=== PATIENT | female | born 1950 | race Caucasian/White ===

== ENCOUNTER 2021-07-30 14:28 | Outpatient (CLI) | payer BC, MEDICARE | END 2021-07-30 14:29 | disposition home or self-care (01) | LOC: BICRAD 14:28 | PROVIDERS: ATTEND Internal Medicine Nephrology | DX: N18.5 Chronic kidney disease, stage 5 (principal) | CPT/HCPCS: 36415; 71046; 80053; 85025; 86704; 86706; 86803; 87340 ==

== ENCOUNTER 2021-08-17 08:19 | Day surgery (SDC) | payer MEDICARE ==
[2021-08-14 11:10] VITALS: BMI 28.5
[2021-08-17] MEDS ORDERED: Heparin 10,000 UNITS/ 10 ML VIAL ONE (10:10)
[2021-08-17] MEDS ORDERED: Heparin 5,000 UNITS/ML VIAL ONE (10:10)
[2021-08-17] MEDS ORDERED: Sodium Chloride 0.9% 0 ML ONE (10:10)
[2021-08-17] MEDS ORDERED: Ketamine 50 MG/ML (10ML VIAL) ONE (10:14)
[2021-08-17] MEDS ORDERED: Fentanyl 100 MCG/2 ML VIAL ONE (10:14)
[2021-08-17] MEDS ORDERED: Midazolam HCl 2 mg/2 ml Vial ONE (10:14)
[2021-08-17] MEDS ORDERED: Lidocaine 1% w/Epinephrine 1:100K 20 ML VIAL ONE (10:50)
[2021-08-17] MEDS ORDERED: Bupivacaine PF 0.5% 30 ML VIAL ONE (10:50)
[2021-08-17] MEDS ORDERED: ceFAZolin 2 GM/DEX 5% 100 ML BAG ONE (11:12)
[2021-08-17] MEDS ORDERED: Lidocaine 1% PF 5 ML VIAL ONE (11:35)
[2021-08-17] MEDS ORDERED: Rocuronium Bromide 10 MG/ML (10ML VIAL) ONE (11:35)
[2021-08-17] MEDS ORDERED: Dexamethasone 20 MG/5 ML VIAL ONE (11:35)
[2021-08-17] MEDS ORDERED: PROPOFOL 200 MG/20 ML VIAL ONE (11:35)
[2021-08-17] MEDS ORDERED: Ondansetron PF 4 MG/2 ML Vial ONE ×2 (11:35→13:43)
[2021-08-17] MEDS ORDERED: Protamine Sulfate 50 MG/5 ML VIAL ONE (12:55)
[2021-08-17] MEDS ORDERED: SUGAMMADEX SODIUM 200 MG/2 ML VIAL ONE (13:02)
[2021-08-17] MEDS ORDERED: Promethazine HCl 25 MG/ML VIAL ONE (14:34)
[2021-08-17] MEDS ORDERED: Sodium Chloride 0.9% 10 ML ONE (14:37)
== END 2021-08-17 16:00 | disposition home or self-care (01) ==
LOC: SDC 08:19
PROVIDERS: ATTEND Specialist
PROC: 0WHG43Z Insertion of Infusion Device into Peritoneal Cavity, Percutaneous Endoscopic Approach (ICD-10-PCS; principal; 2021-08-17)
PROC: 031C0ZF Bypass Left Radial Artery to Lower Arm Vein, Open Approach (ICD-10-PCS; 2021-08-17)
DX: I12.0 Hypertensive chronic kidney disease with stage 5 chronic kidney disease or end stage renal disease (principal); E11.22 Type 2 diabetes mellitus with diabetic chronic kidney disease; N18.6 End stage renal disease; E78.5 Hyperlipidemia, unspecified; E11.51 Type 2 diabetes mellitus with diabetic peripheral angiopathy without gangrene; E11.40 Type 2 diabetes mellitus with diabetic neuropathy, unspecified; Z87.891 Personal history of nicotine dependence; Z79.4 Long term (current) use of insulin; Z79.899 Other long term (current) drug therapy; Z88.5 Allergy status to narcotic agent; Z88.8 Allergy status to other drugs, medicaments and biological substances
CPT/HCPCS: 36416; 93005; 93010; J1100; J1642; J1644; J2250; J2405; J2550; J2704; J2720; J3010; S0020

== ENCOUNTER 2021-09-09 10:11 | Inpatient (IN) | payer MEDICARE ==
[2021-09-09 11:09] LABS: #Basophils 0.1 thou/uL (0.0-0.2); #Eosinphils 0.3 thou/uL (0.0-0.7); #Lymphocytes 0.8 thou/uL (1.20-3.40); #Monocytes 0.6 thou/uL (0.11-0.59); #Neutrophils 11.7 thou/uL (1.40-6.50); %Basophils 0.6 % (0.0-1.0); %Eosinophils 2.6 % (0.0-10.0); %Lymphocytes 5.7 % (21.0-51.0); %Monocytes 4.4 % (0.0-10.0); %Neutrophils 86.8 % (42.0-75.0); Hemoglobin 10.1 g/dL (12.0-16.0); Mean Corpuscular HGB CONC 32.9 g/dL (32.0-36.0); Mean Corpuscular Hemoglobin 29.2 pg (27.0-31.0); Mean Corpuscular Volume 88.7 fL (78.0-98.0); Mean Platelet Volume 6.3 fL (7.4-10.4); Platelet Count 249 thou/uL (130-400); RBC Distribution Width 16.7 % (11.5-14.5); Red Blood Cell (RBC) Count 3.48 mill/uL (4.20-5.40); White Blood Cell (WBC) Count 13.5 thou/uL (4.8-10.8)
[2021-09-09] MEDS ORDERED: Heparin 10,000 UNITS/ 10 ML VIAL ONE (11:41)
[2021-09-09 11:52] LABS: CKMB 4.6 ng/mL (0-6.6)
[2021-09-09 11:53] LABS: ALT (SGPT) 8 U/L (8-55); AST (SGOT) 10 U/L (5-34); Alkaline Phosphatase 84 U/L (40-110); Anion Gap 17 mmol/L (10-20); BUN (Urea Nitrogen) 64 mg/dL (9.8-20.1); Bilirubin, Total 0.6 mg/dL (0.2-1.2); Calc. Creatinine Clearance 0 mL/min (70-130); Calcium 8.6 mg/dL (7.8-10.44); Carbon Dioxide 13 mmol/L (23-31); Chloride 113 mmol/L (98-107); Glucose 222 mg/dL (80-115); Potassium 4.6 mmol/L (3.5-5.1); Sodium 138 mmol/L (136-145)
[2021-09-09] MEDS ORDERED: Lorazepam 2 MG/ML VIAL ONE (13:28)
[2021-09-09 14:34] LABS: HBSAg Index 0.26 S/CO (0-0.99); Hep B Surf Ag Non-Reactive S/CO (NonReactive)
[2021-09-09 16:15] LABS: Troponin I 1.397 ng/mL (< 0.028)
[2021-09-09] MEDS ORDERED: HYDROcodone/Acetaminophen 5/325 mg Tablet PO PRN (16:23)
[2021-09-09] MEDS ORDERED: Dextrose 50% Abboject 50 ML SYRINGE SLOW IVP PRN (16:23)
[2021-09-09] MEDS ORDERED: Dextrose 5% in Water 1,000 ML IV PRN (16:23)
[2021-09-09] MEDS ORDERED: hydrALAZINE 20 MG/ML VIAL SLOW IVP PRN (16:23)
[2021-09-09 19:40] LABS: Troponin I 1.536 ng/mL (< 0.028)
[2021-09-09] MEDS: Heparin 5,000 UNITS/ML VIAL SC SCH (20:39)
[2021-09-09] MEDS: EPOETIN ALFA-EPBX (ESRD) 4,000 UNIT/ML VIAL SC SCH (20:40)
[2021-09-10 00:30] LABS: Critical Call Chem Troponin I RESULT DECREASING; Troponin I 0.764 ng/mL (< 0.028)
[2021-09-10 03:48] LABS: #Eosinphils 0.4 thou/uL (0.0-0.7); #Lymphocytes 1.1 thou/uL (1.20-3.40); #Monocytes 0.7 thou/uL (0.11-0.59); #Neutrophils 6.4 thou/uL (1.40-6.50); %Basophils 0.5 % (0.0-1.0); %Eosinophils 4.4 % (0.0-10.0); %Lymphocytes 12.9 % (21.0-51.0); %Monocytes 7.6 % (0.0-10.0); %Neutrophils 74.6 % (42.0-75.0); Hemoglobin 8.1 g/dL (12.0-16.0); Mean Corpuscular HGB CONC 32.8 g/dL (32.0-36.0); Mean Corpuscular Hemoglobin 28.8 pg (27.0-31.0); Mean Corpuscular Volume 87.9 fL (78.0-98.0); Mean Platelet Volume 6.5 fL (7.4-10.4); Platelet Count 165 thou/uL (130-400); RBC Distribution Width 16.2 % (11.5-14.5); White Blood Cell (WBC) Count 8.6 thou/uL (4.8-10.8)
[2021-09-10 04:07] LABS: Anion Gap 12 mmol/L (10-20); BUN (Urea Nitrogen) 40 mg/dL (9.8-20.1); Calc. Creatinine Clearance 24 mL/min (70-130); Calcium 7.9 mg/dL (7.8-10.44); Carbon Dioxide 19 mmol/L (23-31); Chloride 109 mmol/L (98-107); Glucose 159 mg/dL (80-115); Potassium 3.6 mmol/L (3.5-5.1); Sodium 136 mmol/L (136-145)
[2021-09-10] MEDS: Ferrous Sulfate 325 MG TAB PO SCH ×2 (10:33→16:32)
[2021-09-10] MEDS: Heparin 5,000 UNITS/ML VIAL SC SCH ×2 (10:34→20:55)
[2021-09-10] MEDS: Famotidine 20 MG TAB PO SCH (10:34)
[2021-09-10] MEDS ORDERED: traMADol HCl 50 MG TAB PO PRN (14:59)
[2021-09-10] MEDS: HumaLOG 300 UNITS/3 ML VIAL SC PRN (16:32)
[2021-09-10] MEDS: hydrOXYzine 25 MG TAB PO SCH (20:55)
[2021-09-10 21:11] LABS: SARS-CoV-2 PCR by NAA Not Detected (NotDetected)
[2021-09-11 04:16] LABS: #Basophils 0.1 thou/uL (0.0-0.2); #Eosinphils 0.4 thou/uL (0.0-0.7); #Lymphocytes 0.9 thou/uL (1.20-3.40); #Monocytes 0.8 thou/uL (0.11-0.59); #Neutrophils 6.3 thou/uL (1.40-6.50); %Basophils 0.6 % (0.0-1.0); %Eosinophils 4.8 % (0.0-10.0); %Lymphocytes 10.8 % (21.0-51.0); %Monocytes 8.9 % (0.0-10.0); %Neutrophils 74.9 % (42.0-75.0); Mean Corpuscular HGB CONC 32.9 g/dL (32.0-36.0); Mean Corpuscular Hemoglobin 29.2 pg (27.0-31.0); Mean Corpuscular Volume 88.7 fL (78.0-98.0); Mean Platelet Volume 6.6 fL (7.4-10.4); Platelet Count 176 thou/uL (130-400); RBC Distribution Width 16.2 % (11.5-14.5); Red Blood Cell (RBC) Count 3.07 mill/uL (4.20-5.40); White Blood Cell (WBC) Count 8.4 thou/uL (4.8-10.8)
[2021-09-11 04:39] LABS: Anion Gap 12 mmol/L (10-20); BUN (Urea Nitrogen) 48 mg/dL (9.8-20.1); Calc. Creatinine Clearance 22 mL/min (70-130); Calcium 7.9 mg/dL (7.8-10.44); Carbon Dioxide 19 mmol/L (23-31); Chloride 108 mmol/L (98-107); Glucose 197 mg/dL (80-115); Phosphorus 3.6 mg/dL (2.3-4.7); Potassium 3.8 mmol/L (3.5-5.1); Sodium 135 mmol/L (136-145)
[2021-09-11] MEDS: Calcitriol 0.25 MCG CAP PO SCH (09:29)
[2021-09-11] MEDS: Aspirin 81 mg Enteric Coated Tablet PO SCH (09:29)
[2021-09-11] MEDS: Ferrous Sulfate 325 MG TAB PO SCH ×2 (09:29→17:44)
[2021-09-11] MEDS: Famotidine 20 MG TAB PO SCH (09:29)
[2021-09-11] MEDS: hydrOXYzine 25 MG TAB PO SCH ×2 (09:29→20:37)
[2021-09-11] MEDS: Heparin 5,000 UNITS/ML VIAL SC SCH ×2 (09:30→20:36)
[2021-09-11] MEDS ORDERED: Losartan 25 MG TAB PO SCH (09:45)
[2021-09-11] MEDS ORDERED: Heparin 10,000 UNITS/ 10 ML VIAL ONE (11:39)
[2021-09-11] MEDS: Acetaminophen 325 MG TAB PO PRN (12:51)
[2021-09-11] MEDS: HumaLOG 300 UNITS/3 ML VIAL SC PRN (17:44)
[2021-09-12 05:39] LABS: Cardiac Risk 4.3 (Less than 4.5)
[2021-09-12] MEDS: HumaLOG 300 UNITS/3 ML VIAL SC PRN ×3 (06:08→21:16)
[2021-09-12] MEDS ORDERED: Heparin 10,000 UNITS/ 10 ML VIAL ONE (11:44)
[2021-09-12] MEDS: Heparin 5,000 UNITS/ML VIAL SC SCH ×2 (13:12→20:17)
[2021-09-12] MEDS: Ferrous Sulfate 325 MG TAB PO SCH ×2 (13:12→17:19)
[2021-09-12] MEDS: Gabapentin 300 MG CAP PO SCH ×3 (13:12→20:17)
[2021-09-12] MEDS: Famotidine 20 MG TAB PO SCH (13:56)
[2021-09-12] MEDS: Calcitriol 0.25 MCG CAP PO SCH (13:56)
[2021-09-12] MEDS: Aspirin 81 mg Enteric Coated Tablet PO SCH (13:57)
[2021-09-12] MEDS: hydrOXYzine 25 MG TAB PO SCH ×2 (13:57→20:17)
[2021-09-12] MEDS: Losartan 25 MG TAB PO SCH (13:57)
[2021-09-13 06:04] LABS: #Basophils 0.1 thou/uL (0.0-0.2); #Eosinphils 0.5 thou/uL (0.0-0.7); #Lymphocytes 1.1 thou/uL (1.20-3.40); #Monocytes 0.9 thou/uL (0.11-0.59); #Neutrophils 9.1 thou/uL (1.40-6.50); %Basophils 0.8 % (0.0-1.0); %Eosinophils 4.4 % (0.0-10.0); %Lymphocytes 9.4 % (21.0-51.0); %Monocytes 7.4 % (0.0-10.0); %Neutrophils 78.1 % (42.0-75.0); Hemoglobin 8.6 g/dL (12.0-16.0); Mean Corpuscular HGB CONC 32.4 g/dL (32.0-36.0); Mean Corpuscular Volume 89.5 fL (78.0-98.0); Mean Platelet Volume 6.2 fL (7.4-10.4); Platelet Count 214 thou/uL (130-400); RBC Distribution Width 15.3 % (11.5-14.5); Red Blood Cell (RBC) Count 2.98 mill/uL (4.20-5.40); White Blood Cell (WBC) Count 11.6 thou/uL (4.8-10.8)
[2021-09-13] MEDS: HumaLOG 300 UNITS/3 ML VIAL SC PRN ×4 (06:05→20:45)
[2021-09-13 06:28] LABS: Anion Gap 12 mmol/L (10-20); BUN (Urea Nitrogen) 24 mg/dL (9.8-20.1); Calc. Creatinine Clearance 27 mL/min (70-130); Calcium 8.1 mg/dL (7.8-10.44); Carbon Dioxide 27 mmol/L (23-31); Chloride 99 mmol/L (98-107); Glucose 224 mg/dL (80-115); Potassium 3.6 mmol/L (3.5-5.1); Sodium 134 mmol/L (136-145)
[2021-09-13] MEDS: Famotidine 20 MG TAB PO SCH (08:49)
[2021-09-13] MEDS: Aspirin 81 mg Enteric Coated Tablet PO SCH (08:49)
[2021-09-13] MEDS: Calcitriol 0.25 MCG CAP PO SCH (08:49)
[2021-09-13] MEDS: Ferrous Sulfate 325 MG TAB PO SCH ×2 (08:49→16:08)
[2021-09-13] MEDS: hydrOXYzine 25 MG TAB PO SCH ×2 (08:50→22:14)
[2021-09-13] MEDS: Gabapentin 300 MG CAP PO SCH ×3 (08:50→22:14)
[2021-09-13] MEDS: Losartan 25 MG TAB PO SCH (08:50)
[2021-09-13] MEDS: Heparin 5,000 UNITS/ML VIAL SC SCH ×2 (08:51→20:45)
[2021-09-13] MEDS ORDERED: Communication Order-Pharmacy FS SCH (09:00)
[2021-09-14 05:18] LABS: #Basophils 0.1 thou/uL (0.0-0.2); #Eosinphils 0.6 thou/uL (0.0-0.7); #Lymphocytes 1.3 thou/uL (1.20-3.40); #Monocytes 0.7 thou/uL (0.11-0.59); #Neutrophils 7.5 thou/uL (1.40-6.50); %Basophils 0.6 % (0.0-1.0); %Eosinophils 5.7 % (0.0-10.0); %Lymphocytes 13.1 % (21.0-51.0); %Monocytes 6.5 % (0.0-10.0); %Neutrophils 74.1 % (42.0-75.0); Hemoglobin 8.8 g/dL (12.0-16.0); Mean Corpuscular HGB CONC 32.1 g/dL (32.0-36.0); Mean Corpuscular Volume 90.4 fL (78.0-98.0); Mean Platelet Volume 6.5 fL (7.4-10.4); Platelet Count 230 thou/uL (130-400); RBC Distribution Width 15.3 % (11.5-14.5); Red Blood Cell (RBC) Count 3.03 mill/uL (4.20-5.40); White Blood Cell (WBC) Count 10.1 thou/uL (4.8-10.8)
[2021-09-14 05:41] LABS: Anion Gap 12 mmol/L (10-20); BUN (Urea Nitrogen) 39 mg/dL (9.8-20.1); Calc. Creatinine Clearance 18 mL/min (70-130); Calcium 8.3 mg/dL (7.8-10.44); Carbon Dioxide 27 mmol/L (23-31); Chloride 98 mmol/L (98-107); Glucose 240 mg/dL (80-115); Potassium 3.8 mmol/L (3.5-5.1); Sodium 133 mmol/L (136-145)
[2021-09-14] MEDS: Calcitriol 0.25 MCG CAP PO SCH (07:58)
[2021-09-14] MEDS: Aspirin 81 mg Enteric Coated Tablet PO SCH (07:58)
[2021-09-14] MEDS: Ferrous Sulfate 325 MG TAB PO SCH ×2 (07:58→16:22)
[2021-09-14] MEDS: Famotidine 20 MG TAB PO SCH (07:58)
[2021-09-14] MEDS: hydrOXYzine 25 MG TAB PO SCH ×2 (08:00→21:03)
[2021-09-14] MEDS: Losartan 25 MG TAB PO SCH (08:01)
[2021-09-14] MEDS ORDERED: Lidocaine 1% (PF) 30 ML VIAL ONE (08:07)
[2021-09-14] MEDS ORDERED: Nitroglycerin 100MG/250ML BOT 0 ML ONE ×2 (08:11→08:12)
[2021-09-14] MEDS ORDERED: Verapamil 5 MG/2 ML VIAL ONE (08:11)
[2021-09-14] MEDS ORDERED: Heparin 10,000 UNITS/ 10 ML VIAL ONE ×2 (08:11→09:46)
[2021-09-14] MEDS: Gabapentin 300 MG CAP PO SCH ×3 (08:19→21:02)
[2021-09-14] MEDS: Heparin 5,000 UNITS/ML VIAL SC SCH ×2 (08:20→21:03)
[2021-09-14] MEDS ORDERED: Midazolam HCl 2 mg/2 ml Vial ONE (08:56)
[2021-09-14] MEDS ORDERED: Fentanyl 100 MCG/2 ML VIAL ONE (08:57)
[2021-09-14] MEDS ORDERED: hydrALAZINE 20 MG/ML VIAL ONE (09:22)
[2021-09-14] MEDS ORDERED: Iopamidol 370 76% 50 ML VIAL FS ONE (09:23)
[2021-09-14] MEDS ORDERED: Iopamidol 370 76% 100 ML VIAL ONE (09:23)
[2021-09-14] MEDS ORDERED: Clopidogrel Bisulfate 300 MG TAB ONE (09:33)
[2021-09-14] MEDS ORDERED: Nitroglycerin 0.4 MG TAB (25 Tab Bottle) SL PRN (09:45)
[2021-09-14] MEDS ORDERED: Senokot S 8.6-50 MG TAB PO SCH (18:15)
[2021-09-14] MEDS: HumaLOG 300 UNITS/3 ML VIAL SC PRN (21:03)
[2021-09-15 04:59] LABS: #Eosinphils 0.5 thou/uL (0.0-0.7); #Lymphocytes 1.2 thou/uL (1.20-3.40); #Monocytes 0.8 thou/uL (0.11-0.59); #Neutrophils 7.3 thou/uL (1.40-6.50); %Basophils 0.5 % (0.0-1.0); %Eosinophils 4.9 % (0.0-10.0); %Lymphocytes 11.8 % (21.0-51.0); %Monocytes 7.8 % (0.0-10.0); Hemoglobin 8.9 g/dL (12.0-16.0); Mean Corpuscular HGB CONC 32.3 g/dL (32.0-36.0); Mean Corpuscular Hemoglobin 28.9 pg (27.0-31.0); Mean Corpuscular Volume 89.3 fL (78.0-98.0); Mean Platelet Volume 6.7 fL (7.4-10.4); Platelet Count 243 thou/uL (130-400); RBC Distribution Width 15.2 % (11.5-14.5); Red Blood Cell (RBC) Count 3.07 mill/uL (4.20-5.40); White Blood Cell (WBC) Count 9.8 thou/uL (4.8-10.8)
[2021-09-15 05:20] LABS: ALT (SGPT) 7 U/L (8-55); AST (SGOT) 11 U/L (5-34); Alkaline Phosphatase 68 U/L (40-110); Anion Gap 16 mmol/L (10-20); BUN (Urea Nitrogen) 45 mg/dL (9.8-20.1); Bilirubin, Total 0.5 mg/dL (0.2-1.2); Calc. Creatinine Clearance 15 mL/min (70-130); Calcium 8.1 mg/dL (7.8-10.44); Carbon Dioxide 22 mmol/L (23-31); Chloride 98 mmol/L (98-107); Globulin 3.7 g/dL (2.4-3.5); Glucose 217 mg/dL (80-115); Potassium 3.7 mmol/L (3.5-5.1); Protein, Total 6.7 g/dL (5.8-8.1); Sodium 132 mmol/L (136-145)
[2021-09-15] MEDS: HumaLOG 300 UNITS/3 ML VIAL SC PRN ×4 (06:22→21:37)
[2021-09-15] MEDS: Losartan 25 MG TAB PO SCH (10:11)
[2021-09-15] MEDS: Aspirin 81 mg Enteric Coated Tablet PO SCH (10:11)
[2021-09-15] MEDS: hydrOXYzine 25 MG TAB PO SCH ×2 (10:12→21:36)
[2021-09-15] MEDS: Senokot S 8.6-50 MG TAB PO SCH ×2 (10:14→21:37)
[2021-09-15] MEDS: Ferrous Sulfate 325 MG TAB PO SCH ×2 (10:14→17:12)
[2021-09-15] MEDS: Clopidogrel Bisulfate 75 MG TAB PO SCH (10:14)
[2021-09-15] MEDS ORDERED: Sterile Water 10 ML VIAL IVP SCH (10:15)
[2021-09-15] MEDS ORDERED: Activase 2 MG VIAL CATH SCH (10:15)
[2021-09-15] MEDS: Calcitriol 0.25 MCG CAP PO SCH (10:15)
[2021-09-15] MEDS: Gabapentin 300 MG CAP PO SCH ×3 (10:15→21:37)
[2021-09-15] MEDS: Heparin 5,000 UNITS/ML VIAL SC SCH ×2 (10:18→21:37)
[2021-09-15] MEDS: Famotidine 20 MG TAB PO SCH (12:12)
[2021-09-15] MEDS: Acetaminophen 325 MG TAB PO PRN (21:36)
[2021-09-16 04:36] LABS: #Basophils 0.1 thou/uL (0.0-0.2); #Eosinphils 0.5 thou/uL (0.0-0.7); #Monocytes 0.7 thou/uL (0.11-0.59); #Neutrophils 6.9 thou/uL (1.40-6.50); %Basophils 0.6 % (0.0-1.0); %Eosinophils 5.6 % (0.0-10.0); %Lymphocytes 10.6 % (21.0-51.0); %Monocytes 7.8 % (0.0-10.0); %Neutrophils 75.4 % (42.0-75.0); Hemoglobin 8.1 g/dL (12.0-16.0); Mean Corpuscular HGB CONC 31.5 g/dL (32.0-36.0); Mean Corpuscular Hemoglobin 28.2 pg (27.0-31.0); Mean Corpuscular Volume 89.5 fL (78.0-98.0); Mean Platelet Volume 6.3 fL (7.4-10.4); Platelet Count 279 thou/uL (130-400); RBC Distribution Width 15.2 % (11.5-14.5); Red Blood Cell (RBC) Count 2.87 mill/uL (4.20-5.40); White Blood Cell (WBC) Count 9.2 thou/uL (4.8-10.8)
[2021-09-16 04:54] LABS: Anion Gap 17 mmol/L (10-20); BUN (Urea Nitrogen) 51 mg/dL (9.8-20.1); Calc. Creatinine Clearance 14 mL/min (70-130); Carbon Dioxide 21 mmol/L (23-31); Chloride 96 mmol/L (98-107); Glucose 294 mg/dL (80-115); Potassium 3.6 mmol/L (3.5-5.1); Sodium 130 mmol/L (136-145)
[2021-09-16] MEDS: HumaLOG 300 UNITS/3 ML VIAL SC PRN ×2 (05:42→21:55)
[2021-09-16] MEDS: hydrOXYzine 25 MG TAB PO SCH ×2 (09:06→21:56)
[2021-09-16] MEDS: Losartan 25 MG TAB PO SCH (09:06)
[2021-09-16] MEDS: Clopidogrel Bisulfate 75 MG TAB PO SCH (09:06)
[2021-09-16] MEDS: Gabapentin 300 MG CAP PO SCH ×3 (09:06→21:55)
[2021-09-16] MEDS: Senokot S 8.6-50 MG TAB PO SCH ×2 (09:07→21:56)
[2021-09-16] MEDS: Aspirin 81 mg Enteric Coated Tablet PO SCH (09:09)
[2021-09-16] MEDS: Ferrous Sulfate 325 MG TAB PO SCH ×2 (09:09→16:01)
[2021-09-16] MEDS: Calcitriol 0.25 MCG CAP PO SCH (09:09)
[2021-09-16 14:36] LABS: Hemoglobin 8.8 g/dL (12.0-16.0)
[2021-09-16] MEDS: EPOETIN ALFA-EPBX (ESRD) 4,000 UNIT/ML VIAL SC SCH (21:58)
[2021-09-17 04:45] LABS: #Eosinphils 0.6 thou/uL (0.0-0.7); #Lymphocytes 1.1 thou/uL (1.20-3.40); #Monocytes 0.7 thou/uL (0.11-0.59); #Neutrophils 7.5 thou/uL (1.40-6.50); %Basophils 0.5 % (0.0-1.0); %Eosinophils 5.7 % (0.0-10.0); %Lymphocytes 11.1 % (21.0-51.0); %Monocytes 6.6 % (0.0-10.0); %Neutrophils 76.1 % (42.0-75.0); Mean Corpuscular HGB CONC 32.7 g/dL (32.0-36.0); Mean Corpuscular Hemoglobin 28.8 pg (27.0-31.0); Mean Corpuscular Volume 87.9 fL (78.0-98.0); Mean Platelet Volume 6.4 fL (7.4-10.4); Platelet Count 276 thou/uL (130-400); RBC Distribution Width 14.9 % (11.5-14.5); Red Blood Cell (RBC) Count 2.78 mill/uL (4.20-5.40); White Blood Cell (WBC) Count 9.9 thou/uL (4.8-10.8)
[2021-09-17 05:06] LABS: Anion Gap 18 mmol/L (10-20); BUN (Urea Nitrogen) 56 mg/dL (9.8-20.1); Calc. Creatinine Clearance 12 mL/min (70-130); Carbon Dioxide 21 mmol/L (23-31); Chloride 96 mmol/L (98-107); Glucose 319 mg/dL (80-115); Potassium 3.7 mmol/L (3.5-5.1); Sodium 131 mmol/L (136-145)
[2021-09-17] MEDS: HumaLOG 300 UNITS/3 ML VIAL SC PRN ×4 (05:33→20:38)
[2021-09-17] MEDS ORDERED: EPOETIN ALFA-EPBX (ESRD) 4,000 UNIT/ML VIAL SC SCH (08:15)
[2021-09-17] MEDS: hydrOXYzine 25 MG TAB PO SCH ×2 (08:49→20:38)
[2021-09-17] MEDS: Calcitriol 0.25 MCG CAP PO SCH (08:49)
[2021-09-17] MEDS: Aspirin 81 mg Enteric Coated Tablet PO SCH (08:50)
[2021-09-17] MEDS: Gabapentin 300 MG CAP PO SCH ×3 (08:50→20:37)
[2021-09-17] MEDS: Senokot S 8.6-50 MG TAB PO SCH ×2 (08:50→20:37)
[2021-09-17] MEDS: Ferrous Sulfate 325 MG TAB PO SCH ×2 (08:51→15:42)
[2021-09-17] MEDS: Clopidogrel Bisulfate 75 MG TAB PO SCH (08:51)
[2021-09-17] MEDS: Losartan 25 MG TAB PO SCH (08:52)
[2021-09-17] MEDS ORDERED: EPOETIN ALFA-EPBX (ESRD) 10,000 UNIT/ML VIAL SC SCH (09:30)
[2021-09-17 14:11] VITALS: BMI 29.2
[2021-09-18 05:31] LABS: #Eosinphils 0.7 thou/uL (0.0-0.7); #Lymphocytes 1.1 thou/uL (1.20-3.40); #Neutrophils 8.2 thou/uL (1.40-6.50); %Basophils 0.4 % (0.0-1.0); %Eosinophils 5.9 % (0.0-10.0); %Monocytes 9.1 % (0.0-10.0); %Neutrophils 74.5 % (42.0-75.0); Mean Corpuscular HGB CONC 32.2 g/dL (32.0-36.0); Mean Corpuscular Hemoglobin 28.8 pg (27.0-31.0); Mean Corpuscular Volume 89.3 fL (78.0-98.0); Mean Platelet Volume 6.4 fL (7.4-10.4); Platelet Count 302 thou/uL (130-400); Red Blood Cell (RBC) Count 3.13 mill/uL (4.20-5.40)
[2021-09-18 05:51] LABS: Anion Gap 19 mmol/L (10-20); BUN (Urea Nitrogen) 60 mg/dL (9.8-20.1); Calc. Creatinine Clearance 11 mL/min (70-130); Calcium 8.3 mg/dL (7.8-10.44); Carbon Dioxide 21 mmol/L (23-31); Chloride 96 mmol/L (98-107); Glucose 263 mg/dL (80-115); Potassium 3.7 mmol/L (3.5-5.1); Sodium 132 mmol/L (136-145)
[2021-09-18] MEDS: HumaLOG 300 UNITS/3 ML VIAL SC PRN (05:51)
[2021-09-18] MEDS: Calcitriol 0.25 MCG CAP PO SCH (09:00)
[2021-09-18] MEDS: Clopidogrel Bisulfate 75 MG TAB PO SCH (09:00)
[2021-09-18] MEDS: Gabapentin 300 MG CAP PO SCH (09:00)
[2021-09-18] MEDS: Aspirin 81 mg Enteric Coated Tablet PO SCH (09:00)
[2021-09-18] MEDS: Ferrous Sulfate 325 MG TAB PO SCH ×2 (09:01→17:11)
[2021-09-18] MEDS: Senokot S 8.6-50 MG TAB PO SCH (09:01)
[2021-09-18] MEDS: hydrOXYzine 25 MG TAB PO SCH (09:01)
[2021-09-18] MEDS: Losartan 25 MG TAB PO SCH (09:01)
[2021-09-18] MEDS ORDERED: Heparin 10,000 UNITS/ 10 ML VIAL ONE (12:09)
[2021-09-18 18:09] VITALS: BP 140/84; TEMP 97.8
[2021-09-19] MEDS ORDERED: Gabapentin 300 MG CAP PO SCH (09:00)
== END 2021-09-18 19:15 | disposition home health service (06) | DRG 246 ==
LOC: ERS 10:11 → IMCU/EMU 15:30 → 2NO 09-11 18:13
PROVIDERS: ADMIT Internal Medicine; ATTEND Family Medicine
PROC: 02HV33Z Insertion of Infusion Device into Superior Vena Cava, Percutaneous Approach (ICD-10-PCS; 2021-09-09)
PROC: 5A1D70Z Performance of Urinary Filtration, Intermittent, Less than 6 Hours Per Day (ICD-10-PCS; 2021-09-09)
PROC: 5A09357 Assistance with Respiratory Ventilation, Less than 24 Consecutive Hours, Continuous Positive Airway Pressure (ICD-10-PCS; 2021-09-09)
PROC: 5A1D70Z Performance of Urinary Filtration, Intermittent, Less than 6 Hours Per Day (ICD-10-PCS; 2021-09-11)
PROC: 5A1D70Z Performance of Urinary Filtration, Intermittent, Less than 6 Hours Per Day (ICD-10-PCS; 2021-09-12)
PROC: 027034Z Dilation of Coronary Artery, One Artery with Drug-eluting Intraluminal Device, Percutaneous Approach (ICD-10-PCS; principal; 2021-09-14)
PROC: 4A023N7 Measurement of Cardiac Sampling and Pressure, Left Heart, Percutaneous Approach (ICD-10-PCS; 2021-09-14)
PROC: B2111ZZ Fluoroscopy of Multiple Coronary Arteries using Low Osmolar Contrast (ICD-10-PCS; 2021-09-14)
PROC: 3E1M39Z Irrigation of Peritoneal Cavity using Dialysate, Percutaneous Approach (ICD-10-PCS; 2021-09-16)
DX: I13.2 Hypertensive heart and chronic kidney disease with heart failure and with stage 5 chronic kidney disease, or end stage renal disease (principal); N18.6 End stage renal disease; J96.01 Acute respiratory failure with hypoxia; I50.33 Acute on chronic diastolic (congestive) heart failure; I21.A1 Myocardial infarction type 2; T85.611A Breakdown (mechanical) of intraperitoneal dialysis catheter, initial encounter; N25.81 Secondary hyperparathyroidism of renal origin; E11.69 Type 2 diabetes mellitus with other specified complication; E66.9 Obesity, unspecified; E11.22 Type 2 diabetes mellitus with diabetic chronic kidney disease; F41.9 Anxiety disorder, unspecified; D64.9 Anemia, unspecified; I25.10 Atherosclerotic heart disease of native coronary artery without angina pectoris; E11.51 Type 2 diabetes mellitus with diabetic peripheral angiopathy without gangrene; I35.0 Nonrheumatic aortic (valve) stenosis; E11.40 Type 2 diabetes mellitus with diabetic neuropathy, unspecified; Z20.822 Contact with and (suspected) exposure to COVID-19; Z88.5 Allergy status to narcotic agent; Z88.8 Allergy status to other drugs, medicaments and biological substances; Z79.4 Long term (current) use of insulin; Z79.899 Other long term (current) drug therapy; Z99.2 Dependence on renal dialysis; Z90.49 Acquired absence of other specified parts of digestive tract; Z87.891 Personal history of nicotine dependence; Z68.28 Body mass index [BMI] 28.0-28.9, adult
CPT/HCPCS: 36415; 36416; 36556; 71045; 76942; 80048; 80053; 80061; 82274; 82553; 83880; 83970; 84100; 84484; 85025; 85347; 87340; 90935; 92928; 93005; 93010; 93306; 93458; 94660; 96374; C1769; C1874; C9600; G0257; J0360; J1644; J1815; J2001; J2060; J2250; J3010; Q5105; Q9967; U0003; U0005

== ENCOUNTER 2021-09-25 12:08 | Inpatient (IN) | payer MEDICARE ==
[2021-09-25 13:19] LABS: #Basophils 0.1 thou/uL (0.0-0.2); #Eosinphils 0.7 thou/uL (0.0-0.7); #Lymphocytes 1.2 thou/uL (1.20-3.40); #Monocytes 1.1 thou/uL (0.11-0.59); %Basophils 0.4 % (0.0-1.0); %Eosinophils 4.6 % (0.0-10.0); %Lymphocytes 8.2 % (21.0-51.0); %Monocytes 7.3 % (0.0-10.0); %Neutrophils 79.5 % (42.0-75.0); Hemoglobin 8.9 g/dL (12.0-16.0); Mean Corpuscular HGB CONC 32.4 g/dL (32.0-36.0); Mean Corpuscular Hemoglobin 28.6 pg (27.0-31.0); Mean Platelet Volume 6.5 fL (7.4-10.4); Platelet Count 426 thou/uL (130-400); RBC Distribution Width 15.4 % (11.5-14.5)
[2021-09-25 13:39] LABS: Phosphorus 5.9 mg/dL (2.3-4.7)
[2021-09-25 13:41] LABS: ALT (SGPT) 12 U/L (8-55); AST (SGOT) 21 U/L (5-34); Albumin 3.2 g/dL (3.4-4.8); Alkaline Phosphatase 67 U/L (40-110); Anion Gap 19 mmol/L (10-20); BUN (Urea Nitrogen) 69 mg/dL (9.8-20.1); Bilirubin, Total 0.5 mg/dL (0.2-1.2); Calc. Creatinine Clearance 0 mL/min (70-130); Calcium 8.4 mg/dL (7.8-10.44); Carbon Dioxide 22 mmol/L (23-31); Chloride 100 mmol/L (98-107); Globulin 4.4 g/dL (2.4-3.5); Glucose 121 mg/dL (80-115); Lipase Less than 4 U/L (8-78); Magnesium 1.7 mg/dL (1.6-2.6); Potassium 4.3 mmol/L (3.5-5.1); Protein, Total 7.6 g/dL (5.8-8.1); Sodium 137 mmol/L (136-145)
[2021-09-25 14:05] LABS: CKMB 1.7 ng/mL (0-6.6)
[2021-09-25] MEDS ORDERED: Morphine 4 MG/ML VIAL ONE (14:25)
[2021-09-25] MEDS ORDERED: Bacitracin 1 PK ONE (14:33)
[2021-09-25] MEDS ORDERED: cefTRIAXone\\ROCEPHIN 2 GM VIAL ONE (15:24)
[2021-09-25 16:08] LABS: Bilirubin Negative (Negative); Blood, Urine Moderate (Negative); Glucose, Urine (Dipstick) Negative (Negative); Ketone, Urine Negative (Negative); Leukocyte Large (Negative); Nitrite Negative (Negative); Protein, Urine (Dipstick) > or equal to 300 mg/dL (Neg-Trace); Urobilinogen 0.2 mg/dL (Less than 2)
[2021-09-25 16:10] LABS: Clarity Cloudy (Clear)
[2021-09-25 16:17] LABS: Bacteria/HPF 4+ HPF (None Seen); Squamous Epithelial 0-3 HPF (0-3)
[2021-09-25] MEDS ORDERED: Acetaminophen 325 MG TAB PO PRN (16:55)
[2021-09-25] MEDS ORDERED: Guaifenesin DM 100-10/5 ML UDCUP PO PRN (16:55)
[2021-09-25] MEDS ORDERED: Dextrose 5% in Water 1,000 ML IV PRN (16:55)
[2021-09-25] MEDS ORDERED: Bisacodyl 10 MG SUPP PR PRN (16:55)
[2021-09-25] MEDS ORDERED: Dextrose 50% Abboject 50 ML SYRINGE SLOW IVP PRN (16:55)
[2021-09-25] MEDS ORDERED: Senokot S 8.6-50 MG TAB PO PRN (16:55)
[2021-09-25] MEDS ORDERED: Ondansetron PF 4 MG/2 ML Vial IVP PRN (16:55)
[2021-09-25] MEDS ORDERED: Calcium Carbonate 500 MG ChewTAB PO PRN (16:55)
[2021-09-25 18:48] VITALS: BMI 27.8
[2021-09-25] MEDS: Ferrous Sulfate 325 MG TAB PO SCH ×2 (19:14→19:33)
[2021-09-25] MEDS: Sodium Chloride 0.9% 1,000 ML IV SCH (19:14)
[2021-09-25] MEDS ORDERED: VANCOMYCIN 1.75 GM/350 ML BAG 1.75 GM in Premix Bag 1 BAG IVPB SCH (20:00)
[2021-09-26] MEDS: Sodium Chloride 0.9% 1,000 ML IV SCH (02:35)
[2021-09-26 05:38] LABS: #Basophils 0.1 thou/uL (0.0-0.2); #Eosinphils 0.7 thou/uL (0.0-0.7); #Lymphocytes 0.8 thou/uL (1.20-3.40); #Monocytes 0.6 thou/uL (0.11-0.59); #Neutrophils 8.1 thou/uL (1.40-6.50); %Basophils 0.6 % (0.0-1.0); %Eosinophils 6.5 % (0.0-10.0); %Lymphocytes 8.2 % (21.0-51.0); %Neutrophils 78.8 % (42.0-75.0); Hemoglobin 7.5 g/dL (12.0-16.0); Mean Corpuscular HGB CONC 31.3 g/dL (32.0-36.0); Mean Corpuscular Hemoglobin 28.3 pg (27.0-31.0); Mean Corpuscular Volume 90.6 fL (78.0-98.0); Mean Platelet Volume 5.3 fL (7.4-10.4); Platelet Count 334 thou/uL (130-400); RBC Distribution Width 15.1 % (11.5-14.5); Red Blood Cell (RBC) Count 2.63 mill/uL (4.20-5.40); White Blood Cell (WBC) Count 10.3 thou/uL (4.8-10.8)
[2021-09-26 06:05] LABS: ALT (SGPT) 9 U/L (8-55); AST (SGOT) 12 U/L (5-34); Albumin 2.7 g/dL (3.4-4.8); Alkaline Phosphatase 64 U/L (40-110); Anion Gap 18 mmol/L (10-20); BUN (Urea Nitrogen) 63 mg/dL (9.8-20.1); Bilirubin, Total 0.4 mg/dL (0.2-1.2); Calc. Creatinine Clearance 10 mL/min (70-130); Calcium 7.3 mg/dL (7.8-10.44); Carbon Dioxide 21 mmol/L (23-31); Chloride 101 mmol/L (98-107); Globulin 3.7 g/dL (2.4-3.5); Glucose 140 mg/dL (80-115); Potassium 3.6 mmol/L (3.5-5.1); Protein, Total 6.4 g/dL (5.8-8.1); Sodium 136 mmol/L (136-145)
[2021-09-26] MEDS ORDERED: EPOETIN ALFA-EPBX (ESRD) 4,000 UNIT/ML VIAL SC SCH (08:00)
[2021-09-26] MEDS ORDERED: Vancomycin 1 GM in Premix Bag 1 BAG IVPB SCH (10:00)
[2021-09-26] MEDS ORDERED: Vancomycin HCl 500 MG in Sodium Chloride 0.9% 100 ML IVPB SCH (10:00)
[2021-09-26] MEDS ORDERED: Vancomycin HCl 750 MG in Sodium Chloride 0.9% 250 ML 250 ML IVPB SCH (10:00)
[2021-09-26] MEDS ORDERED: VANCOMYCIN 1.25 GM/250 ML BAG 1.25 GM in Premix Bag 1 BAG IVPB SCH (10:00)
[2021-09-26] MEDS ORDERED: HOLD VANCOMYCIN FOR LEVEL >20 SLOW IVP SCH (10:00)
[2021-09-26] MEDS: Fish Oil 1,000 MG CAP PO SCH (10:05)
[2021-09-26] MEDS: Aspirin 81 mg Enteric Coated Tablet PO SCH (10:05)
[2021-09-26] MEDS: Clopidogrel Bisulfate 75 MG TAB PO SCH (10:05)
[2021-09-26] MEDS: Ferrous Sulfate 325 MG TAB PO SCH ×2 (10:05→17:16)
[2021-09-26] MEDS: Calcitriol 0.25 MCG CAP PO SCH (10:06)
[2021-09-26] MEDS: Enoxaparin Sodium 30 MG/0.3 ML SYRINGE SC SCH (10:10)
[2021-09-26] MEDS: Gabapentin 300 MG CAP PO SCH (10:17)
[2021-09-26 13:58] LABS: SARS-CoV-2 PCR by NAA Not Detected (NotDetected)
[2021-09-26] MEDS ORDERED: cefTRIAXone\\ROCEPHIN 1 GM in Sodium Chloride 0.9% 100 ML IVPB SCH (16:00)
[2021-09-27] MEDS: Ferrous Sulfate 325 MG TAB PO SCH ×2 (09:39→17:58)
[2021-09-27] MEDS: Clopidogrel Bisulfate 75 MG TAB PO SCH (09:39)
[2021-09-27] MEDS: Gabapentin 300 MG CAP PO SCH (09:39)
[2021-09-27] MEDS: Aspirin 81 mg Enteric Coated Tablet PO SCH (09:39)
[2021-09-27] MEDS: Fish Oil 1,000 MG CAP PO SCH (09:40)
[2021-09-27] MEDS: Calcitriol 0.25 MCG CAP PO SCH (09:40)
[2021-09-27] MEDS: Enoxaparin Sodium 30 MG/0.3 ML SYRINGE SC SCH (09:41)
[2021-09-27] MEDS: Amoxicillin/Potassium Clav 500 MG TAB PO SCH ×2 (09:45→20:08)
[2021-09-27] MEDS: HumuLIN 70/30 (300 UNITS/3 ML VIAL) SC SCH (20:09)
[2021-09-27] MEDS: HumaLOG 300 UNITS/3 ML VIAL SC PRN (20:10)
[2021-09-28] MEDS: HumaLOG 300 UNITS/3 ML VIAL SC PRN (04:36)
[2021-09-28] MEDS: Aspirin 81 mg Enteric Coated Tablet PO SCH (07:51)
[2021-09-28] MEDS: Fish Oil 1,000 MG CAP PO SCH (07:51)
[2021-09-28] MEDS: Amoxicillin/Potassium Clav 500 MG TAB PO SCH ×2 (07:51→21:23)
[2021-09-28] MEDS: Clopidogrel Bisulfate 75 MG TAB PO SCH (07:52)
[2021-09-28] MEDS: Calcitriol 0.25 MCG CAP PO SCH (07:52)
[2021-09-28] MEDS: Gabapentin 300 MG CAP PO SCH (07:52)
[2021-09-28] MEDS: Ferrous Sulfate 325 MG TAB PO SCH ×2 (07:52→15:43)
[2021-09-28] MEDS: Enoxaparin Sodium 30 MG/0.3 ML SYRINGE SC SCH (07:53)
[2021-09-28] MEDS: HumuLIN 70/30 (300 UNITS/3 ML VIAL) SC SCH ×2 (08:23→21:24)
[2021-09-29] MEDS: HumaLOG 300 UNITS/3 ML VIAL SC PRN ×2 (05:20→21:53)
[2021-09-29 06:23] LABS: #Eosinphils 0.8 thou/uL (0.0-0.7); #Lymphocytes 0.6 thou/uL (1.20-3.40); #Monocytes 0.6 thou/uL (0.11-0.59); %Basophils 0.2 % (0.0-1.0); %Eosinophils 7.8 % (0.0-10.0); %Lymphocytes 5.6 % (21.0-51.0); %Monocytes 5.5 % (0.0-10.0); %Neutrophils 80.9 % (42.0-75.0); Hemoglobin 8.2 g/dL (12.0-16.0); Mean Corpuscular HGB CONC 32.5 g/dL (32.0-36.0); Mean Corpuscular Hemoglobin 28.9 pg (27.0-31.0); Mean Platelet Volume 5.7 fL (7.4-10.4); Platelet Count 321 thou/uL (130-400); RBC Distribution Width 15.2 % (11.5-14.5); Red Blood Cell (RBC) Count 2.83 mill/uL (4.20-5.40); White Blood Cell (WBC) Count 9.9 thou/uL (4.8-10.8)
[2021-09-29 06:45] LABS: Anion Gap 19 mmol/L (10-20); BUN (Urea Nitrogen) 59 mg/dL (9.8-20.1); Calc. Creatinine Clearance 12 mL/min (70-130); Calcium 7.5 mg/dL (7.8-10.44); Carbon Dioxide 19 mmol/L (23-31); Chloride 101 mmol/L (98-107); Glucose 226 mg/dL (80-115); Potassium 3.6 mmol/L (3.5-5.1); Sodium 135 mmol/L (136-145)
[2021-09-29] MEDS: Gabapentin 300 MG CAP PO SCH (08:51)
[2021-09-29] MEDS: Clopidogrel Bisulfate 75 MG TAB PO SCH (08:51)
[2021-09-29] MEDS: Fish Oil 1,000 MG CAP PO SCH (08:51)
[2021-09-29] MEDS: Calcitriol 0.25 MCG CAP PO SCH (08:51)
[2021-09-29] MEDS: Amoxicillin/Potassium Clav 500 MG TAB PO SCH ×2 (08:51→21:50)
[2021-09-29] MEDS: Ferrous Sulfate 325 MG TAB PO SCH ×2 (08:51→16:15)
[2021-09-29] MEDS: Enoxaparin Sodium 30 MG/0.3 ML SYRINGE SC SCH (08:52)
[2021-09-29] MEDS: HumuLIN 70/30 (300 UNITS/3 ML VIAL) SC SCH ×2 (08:52→21:52)
[2021-09-29] MEDS: Aspirin 81 mg Enteric Coated Tablet PO SCH (08:52)
[2021-09-29] MEDS ORDERED: FLU VACC QS2021-22(65YR UP)/PF 240 MCG/0.7 ML SYRINGE IM ONE (09:00)
[2021-09-29] MEDS ORDERED: Furosemide 40 MG/4 ML VIAL SLOW IVP SCH (15:45)
[2021-09-30] MEDS: HumaLOG 300 UNITS/3 ML VIAL SC PRN ×3 (06:00→20:17)
[2021-09-30 07:30] LABS: #Eosinphils 0.8 thou/uL (0.0-0.7); #Lymphocytes 0.7 thou/uL (1.20-3.40); #Monocytes 0.5 thou/uL (0.11-0.59); #Neutrophils 6.5 thou/uL (1.40-6.50); %Basophils 0.2 % (0.0-1.0); %Eosinophils 9.8 % (0.0-10.0); %Lymphocytes 8.3 % (21.0-51.0); %Monocytes 6.3 % (0.0-10.0); %Neutrophils 75.4 % (42.0-75.0); Hemoglobin 8.7 g/dL (12.0-16.0); Mean Corpuscular HGB CONC 31.9 g/dL (32.0-36.0); Mean Corpuscular Hemoglobin 28.7 pg (27.0-31.0); Mean Corpuscular Volume 89.9 fL (78.0-98.0); Mean Platelet Volume 5.5 fL (7.4-10.4); Platelet Count 330 thou/uL (130-400); RBC Distribution Width 15.1 % (11.5-14.5); Red Blood Cell (RBC) Count 3.03 mill/uL (4.20-5.40); White Blood Cell (WBC) Count 8.6 thou/uL (4.8-10.8)
[2021-09-30 07:49] LABS: Anion Gap 19 mmol/L (10-20); BUN (Urea Nitrogen) 50 mg/dL (9.8-20.1); Calc. Creatinine Clearance 12 mL/min (70-130); Calcium 7.6 mg/dL (7.8-10.44); Carbon Dioxide 22 mmol/L (23-31); Chloride 102 mmol/L (98-107); Glucose 143 mg/dL (80-115); Potassium 3.6 mmol/L (3.5-5.1); Sodium 139 mmol/L (136-145)
[2021-09-30] MEDS: Fish Oil 1,000 MG CAP PO SCH (08:52)
[2021-09-30] MEDS: Aspirin 81 mg Enteric Coated Tablet PO SCH (08:53)
[2021-09-30] MEDS: Clopidogrel Bisulfate 75 MG TAB PO SCH (08:53)
[2021-09-30] MEDS: Calcitriol 0.25 MCG CAP PO SCH (08:53)
[2021-09-30] MEDS: Gabapentin 300 MG CAP PO SCH (08:53)
[2021-09-30] MEDS: Amoxicillin/Potassium Clav 500 MG TAB PO SCH ×2 (08:53→20:09)
[2021-09-30] MEDS: Ferrous Sulfate 325 MG TAB PO SCH ×2 (08:53→16:35)
[2021-09-30] MEDS: Enoxaparin Sodium 30 MG/0.3 ML SYRINGE SC SCH (08:54)
[2021-09-30] MEDS: HumuLIN 70/30 (300 UNITS/3 ML VIAL) SC SCH ×2 (08:54→20:16)
[2021-10-01] MEDS: HumaLOG 300 UNITS/3 ML VIAL SC PRN (06:23)
[2021-10-01] MEDS: Amoxicillin/Potassium Clav 500 MG TAB PO SCH ×2 (08:56→21:14)
[2021-10-01] MEDS: Clopidogrel Bisulfate 75 MG TAB PO SCH (08:57)
[2021-10-01] MEDS: Ferrous Sulfate 325 MG TAB PO SCH ×2 (08:57→17:12)
[2021-10-01] MEDS: Calcitriol 0.25 MCG CAP PO SCH (08:57)
[2021-10-01] MEDS: Aspirin 81 mg Enteric Coated Tablet PO SCH (08:57)
[2021-10-01] MEDS: Gabapentin 300 MG CAP PO SCH (08:57)
[2021-10-01] MEDS: Fish Oil 1,000 MG CAP PO SCH (08:57)
[2021-10-01] MEDS: Enoxaparin Sodium 30 MG/0.3 ML SYRINGE SC SCH (08:58)
[2021-10-01] MEDS: HumuLIN 70/30 (300 UNITS/3 ML VIAL) SC SCH ×2 (08:59→21:17)
[2021-10-02] MEDS: HumaLOG 300 UNITS/3 ML VIAL SC PRN (06:32)
[2021-10-02 09:03] VITALS: BP 147/73; TEMP 97.7
[2021-10-02] MEDS: Amoxicillin/Potassium Clav 500 MG TAB PO SCH (09:11)
[2021-10-02] MEDS: Fish Oil 1,000 MG CAP PO SCH (09:11)
[2021-10-02] MEDS: Calcitriol 0.25 MCG CAP PO SCH (09:11)
[2021-10-02] MEDS: Clopidogrel Bisulfate 75 MG TAB PO SCH (09:11)
[2021-10-02] MEDS: Aspirin 81 mg Enteric Coated Tablet PO SCH (09:12)
[2021-10-02] MEDS: Ferrous Sulfate 325 MG TAB PO SCH ×2 (09:12→19:18)
[2021-10-02] MEDS: Gabapentin 300 MG CAP PO SCH (09:12)
[2021-10-02] MEDS: Enoxaparin Sodium 30 MG/0.3 ML SYRINGE SC SCH (09:13)
[2021-10-02] MEDS: HumuLIN 70/30 (300 UNITS/3 ML VIAL) SC SCH (09:22)
== END 2021-10-02 17:20 | DRG 871 ==
LOC: ERS 12:08 → T4-B 16:55
PROVIDERS: ADMIT Internal Medicine; ATTEND Internal Medicine
PROC: 3E1M39Z Irrigation of Peritoneal Cavity using Dialysate, Percutaneous Approach (ICD-10-PCS; principal; 2021-09-25)
PROC: 0T9B70Z Drainage of Bladder with Drainage Device, Via Natural or Artificial Opening (ICD-10-PCS; 2021-09-25)
DX: A41.81 Sepsis due to Enterococcus (principal); N18.6 End stage renal disease; J90 Pleural effusion, not elsewhere classified; N30.00 Acute cystitis without hematuria; N25.81 Secondary hyperparathyroidism of renal origin; Z16.29 Resistance to other single specified antibiotic; I12.0 Hypertensive chronic kidney disease with stage 5 chronic kidney disease or end stage renal disease; Z20.822 Contact with and (suspected) exposure to COVID-19; E11.22 Type 2 diabetes mellitus with diabetic chronic kidney disease; E83.51 Hypocalcemia; E11.21 Type 2 diabetes mellitus with diabetic nephropathy; D63.1 Anemia in chronic kidney disease; R33.9 Retention of urine, unspecified; R09.02 Hypoxemia; E78.5 Hyperlipidemia, unspecified; F41.9 Anxiety disorder, unspecified; I25.10 Atherosclerotic heart disease of native coronary artery without angina pectoris; R53.81 Other malaise; Z88.6 Allergy status to analgesic agent; Z88.8 Allergy status to other drugs, medicaments and biological substances; Z99.2 Dependence on renal dialysis; Z79.4 Long term (current) use of insulin; Z95.5 Presence of coronary angioplasty implant and graft; Z90.49 Acquired absence of other specified parts of digestive tract; Z79.82 Long term (current) use of aspirin; Z79.02 Long term (current) use of antithrombotics/antiplatelets; Z79.899 Other long term (current) drug therapy; Z87.891 Personal history of nicotine dependence
CPT/HCPCS: 36415; 36416; 51702; 74176; 80048; 80053; 81003; 81015; 82553; 83605; 83690; 83735; 84100; 84145; 84484; 85025; 87040; 87070; 87077; 87086; 87186; 87205; 90945; 93005; 96365; 96375; G0257; J0696; J1650; J1815; J1940; J2270; J3370; J3490; J7050; Q5105; U0003; U0005

== ENCOUNTER 2022-08-29 13:47 | Inpatient (IN) | payer MEDICARE, OTHER ==
[2022-08-29] MEDS ORDERED: Cyclobenzaprine 10 MG TAB ONE (15:07)
[2022-08-29] MEDS ORDERED: Diazepam 10 MG/2 ML SYRINGE ONE (16:06)
[2022-08-29 16:23] LABS: Hemoglobin 9.6 g/dL (12.0-16.0); Mean Corpuscular HGB CONC 33.8 g/dL (32.0-36.0); Mean Corpuscular Hemoglobin 34.7 pg (27.0-31.0); Mean Platelet Volume 6.7 fL (7.4-10.4); Platelet Count 221 10x3/uL (130-400); RBC Distribution Width 15.5 % (11.5-14.5); Red Blood Cell (RBC) Count 2.76 mill/uL (4.20-5.40); White Blood Cell (WBC) Count 24.1 10x3/uL (4.8-10.8)
[2022-08-29 16:37] LABS: Anisocytosis SLIGHT = 6-15 cells (100X) (0-5/hpf); Band 15 % (5-11); Lymphocytes 5 % (21-51); MDiff Complete? YES; Macrocytosis SLIGHT = 6-15 cells (100X) (0-5/hpf); Monocytes 4 % (0-10); Neutrophil 76 % (42-75); Platelet Morphology Comment Appears Adequate; Polychromasia SLIGHT = 2-3 cells (100X) (0-2/hpf)
[2022-08-29 16:48] LABS: Albumin 3.4 g/dL (3.4-4.8)
[2022-08-29 16:49] LABS: Chloride 92 mmol/L (98-107); Potassium 4.4 mmol/L (3.5-5.1); Sodium 133 mmol/L (136-145)
[2022-08-29 16:50] LABS: Anion Gap 30 mmol/L (10-20); Calcium 9.3 mg/dL (7.8-10.44); Globulin 4.1 g/dL (2.4-3.5); Glucose 251 mg/dL (80-115)
[2022-08-29 16:51] LABS: ALT (SGPT) 39 U/L (8-55); AST (SGOT) 45 U/L (5-34); Alkaline Phosphatase 149 U/L (40-110); BUN (Urea Nitrogen) 61 mg/dL (9.8-20.1); Carbon Dioxide 16 mmol/L (23-31)
[2022-08-29 16:58] LABS: Bilirubin, Total 0.9 mg/dL (0.2-1.2); CKMB 15.1 ng/mL (0-6.6); Calc. Creatinine Clearance 0 mL/min (70-130); Estimated GFR 4; Protein, Total 7.5 g/dL (5.8-8.1)
[2022-08-29] MEDS ORDERED: Fleet Enema 133 ML BOT PR SCH (18:45)
[2022-08-29] MEDS ORDERED: Cefepime 2 GM VIAL ONE (18:51)
[2022-08-29] MEDS ORDERED: Sodium Chloride 0.9% 100 ML ONE (18:51)
[2022-08-29] MEDS ORDERED: Vancomycin 1 GM/200 ML (FROZEN) BAG ONE (18:51)
[2022-08-29 19:22] LABS: Bacteria/HPF 4+ HPF (None Seen); Bilirubin Negative (Negative); Blood, Urine 1+ (Negative); Clarity Extra Turbid (Clear); Glucose, Urine (Dipstick) Normal (Negative); Ketone, Urine Negative (Negative); Leukocyte 500 Leu/uL (Negative); Nitrite Negative (Negative); Protein, Urine (Dipstick) 100 mg/dL (Neg-Trace); Renal Epithelial 0-3 HPF (None Seen); Specific Gravity, Urine 1.015 (1.002-1.036); Urobilinogen Normal mg/dL (Less than 2); WBC/HPF Greater than 50 HPF (0-3)
[2022-08-29] MEDS ORDERED: Morphine 4 MG/ML VIAL ONE (20:54)
[2022-08-29] MEDS ORDERED: Senokot S 8.6-50 MG TAB PO PRN (21:55)
[2022-08-29] MEDS ORDERED: Acetaminophen 325 MG TAB PO PRN (21:55)
[2022-08-29] MEDS ORDERED: Heparin 10,000 UNITS/ 10 ML VIAL SLOW IVP SCH (22:00)
[2022-08-29] MEDS ORDERED: Heparin 25,000 units/D5W 500 ML IVPB SCH (22:00)
[2022-08-29] MEDS ORDERED: Piperacillin/Tazobactam 4.5 GM in Sodium Chloride 0.9% 100 ML IVPB SCH (22:00)
[2022-08-29 22:05] LABS: Lactic Acid 8.9 mmol/L (0.5-2.2)
[2022-08-29 22:09] LABS: Hemoglobin 9.6 g/dL (12.0-16.0); Platelet Count 246 10x3/uL (130-400)
[2022-08-29] MEDS ORDERED: Vancomycin 1 GM in Premix Bag 1 BAG IVPB SCH (22:15)
[2022-08-29] MEDS ORDERED: Vancomycin Dialysis Sliding Scale (Wt > 99) FS SCH (22:15)
[2022-08-29 22:31] LABS: CKMB 14.4 ng/mL (0-6.6)
[2022-08-29] MEDS ORDERED: Piperacillin/Tazobactam 3.375 GM in Sodium Chloride 0.9% 100 ML IVPB SCH (23:00)
[2022-08-29 23:08] VITALS: BMI 30.8
[2022-08-30 00:30] LABS: SARS-CoV-2 NAA Rapid Test Not Detected (NotDetected)
[2022-08-30] MEDS ORDERED: Morphine 4 MG/ML VIAL SLOW IVP SCH (00:30)
[2022-08-30] MEDS ORDERED: Aspirin 325 mg Enteric Coated Tablet PO SCH (00:45)
[2022-08-30] MEDS ORDERED: Nitroglycerin 0.4 MG TAB (25 Tab Bottle) SL PRN (00:54)
[2022-08-30] MEDS ORDERED: Midodrine HCl 5 MG TAB PO SCH (01:30)
[2022-08-30 01:47] LABS: INR-International Normal Ratio 1.5; Prothrombin Time 18.3 sec (12.0-14.7)
[2022-08-30 01:48] LABS: PTT 34.8 sec (22.9-36.1)
[2022-08-30 01:52] LABS: Anion Gap 31 mmol/L (10-20); BUN (Urea Nitrogen) 64 mg/dL (9.8-20.1); Calc. Creatinine Clearance 10 mL/min (70-130); Calcium 8.6 mg/dL (7.8-10.44); Carbon Dioxide 13 mmol/L (23-31); Chloride 94 mmol/L (98-107); Estimated GFR 4; Glucose 281 mg/dL (80-115); Potassium 5.5 mmol/L (3.5-5.1); Sodium 132 mmol/L (136-145)
[2022-08-30 01:55] LABS: Lactic Acid 9.1 mmol/L (0.5-2.2)
[2022-08-30 02:03] LABS: Critical Call Chem Troponin I RESULT DECREASING; Troponin I 4.133 ng/mL (< 0.028)
[2022-08-30 02:07] LABS: Anisocytosis SLIGHT = 6-15 cells (100X) (0-5/hpf); Band 7 % (5-11); Hemoglobin 9.5 g/dL (12.0-16.0); Lymphocytes 8 % (21-51); MDiff Complete? YES; Macrocytosis SLIGHT = 6-15 cells (100X) (0-5/hpf); Mean Corpuscular Hemoglobin 35.4 pg (27.0-31.0); Mean Platelet Volume 6.9 fL (7.4-10.4); Monocytes 5 % (0-10); Neutrophil 80 % (42-75); Ovalocytes SLIGHT = 2-5 cells (100X) (0-1/hpf); Platelet Count 248 10x3/uL (130-400); Platelet Morphology Comment Appears Adequate; RBC Distribution Width 15.8 % (11.5-14.5); Red Blood Cell (RBC) Count 2.69 mill/uL (4.20-5.40); White Blood Cell (WBC) Count 31.3 10x3/uL (4.8-10.8)
[2022-08-30] MEDS ORDERED: Sodium Bicarb 50 MEQ/50 ML VIAL IVP SCH (02:45)
[2022-08-30] MEDS ORDERED: Piperacillin/Tazobactam 3.375 GM in Sodium Chloride 0.9% 100 ML IVPB SCH (03:00)
[2022-08-30 03:53] VITALS: BP 125/52; TEMP 96.2
[2022-08-30] MEDS ORDERED: Ondansetron PF 4 MG/2 ML Vial IVP PRN (04:32)
[2022-08-30] MEDS ORDERED: Vancomycin 1 GM in Premix Bag 1 BAG IVPB SCH (09:00)
[2022-08-30] MEDS ORDERED: Aspirin 81 mg Enteric Coated Tablet PO SCH (09:00)
== END 2022-08-30 10:45 | disposition expired | DRG 871 ==
LOC: ERS 13:47 → 2NO 20:43
PROVIDERS: ADMIT Student in an Organized Health Care Education/Training Program; ATTEND Internal Medicine
DX: A41.9 Sepsis, unspecified organism (principal); I21.4 Non-ST elevation (NSTEMI) myocardial infarction; N18.6 End stage renal disease; I50.33 Acute on chronic diastolic (congestive) heart failure; E87.20 Acidosis, unspecified; I13.2 Hypertensive heart and chronic kidney disease with heart failure and with stage 5 chronic kidney disease, or end stage renal disease; N30.00 Acute cystitis without hematuria; Z20.822 Contact with and (suspected) exposure to COVID-19; K59.00 Constipation, unspecified; E78.5 Hyperlipidemia, unspecified; E11.22 Type 2 diabetes mellitus with diabetic chronic kidney disease; R65.20 Severe sepsis without septic shock; E11.51 Type 2 diabetes mellitus with diabetic peripheral angiopathy without gangrene; Z28.311 Partially vaccinated for COVID-19; Z88.5 Allergy status to narcotic agent; Z88.8 Allergy status to other drugs, medicaments and biological substances; Z79.4 Long term (current) use of insulin; Z79.01 Long term (current) use of anticoagulants; Z79.899 Other long term (current) drug therapy; Z90.49 Acquired absence of other specified parts of digestive tract; Z87.891 Personal history of nicotine dependence; Z99.2 Dependence on renal dialysis
CPT/HCPCS: 36415; 36416; 51701; 71045; 74176; 80053; 81003; 81015; 82553; 83605; 83880; 84443; 84484; 85025; 85610; 85730; 87040; 87086; 93005; 93010; 96361; 96365; 96367; 96375; J0692; J1644; J2270; J2405; J2543; J3360; J3370; J3370-JW; J3490; U0002